=== PATIENT | female | born 1940 | race Caucasian/White ===

== ENCOUNTER → 2016-09-04 | Outpatient (CLI) | payer MEDICARE, BC ==
--- NOTE | 2016-09-04 19:01 | RADRPT ---
PROCEDURE: XR Pelvis and Hips. CLINICAL INDICATION: Pelvic pain. Bilateral hip pain. TECHNIQUE: Five views. Frontal pelvis. Frontal and lateral right hip. Frontal and lateral left hip. COMPARISON: No prior studies are available for comparison. FINDINGS: There is a right hip hemiarthroplasty which appears satisfactory. There is no fracture, dislocation , or loosening. There is a left hip open reduction and internal fixation with a diaz in the shaft of the femur and a screw in the neck of the femur. Alignment is satisfactory. Previously noted right lateral skin marti have been removed. Left hip articular surfaces are intact. The sacroiliac joints are unremarkable. The upper pelvis is not included on the images. IMPRESSION: 1. Satisfactory postoperative appearance of both hips. RPTAT: QQ .Jeremie Mejia MD, Date Time Electronically viewed and signed by .Jeremie Mejia MD, on 09/04/2016 19:01 .R/
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
== END | disposition home or self-care (01) ==
LOC: HKI 15:14
DX: Z47.89 Encounter for other orthopedic aftercare (principal); S72.002D Fracture of unspecified part of neck of left femur, subsequent encounter for closed fracture with routine healing; X58.XXXD Exposure to other specified factors, subsequent encounter
CPT/HCPCS: 73522; G0463